=== PATIENT | female | born 2000 | race Caucasian/White ===

== ENCOUNTER 2020-01-30 23:25 | Inpatient (IN) | payer MEDICAID ==
[~2020-01-30] VITALS: Ht 162.6 cm; Wt 54.9 kg
[2020-01-30] MEDS ORDERED: ONDANSETRON HCL 4MG/2ML INJ IV ONE (23:45)
[2020-01-31 00:02] LABS: BASOPHILS % 0.4 % (0.0-2.0); EOSINOPHILS % 2.9 % (0.0-5.0); HEMATOCRIT. 31.6 % (36.0-48.0); HEMOGLOBIN. 11.1 g/dL (12.0-16.0); LYMPHOCYTES % 40.1 % (20.0-50.0); MEAN CORPUSCULAR HEMOGLOBIN 28.8 pg (28.0-32.0); MEAN PLATELET VOLUME 7.6 fl (7.4-10.4); MONOCYTES % 7.8 % (2.0-8.0); NEUTROPHILS % 48.8 % (40.0-76.0); PLATELET 268 x1000/uL (130-400); RED BLOOD CELL COUNT 3.86 mill/uL (4.2-5.4); RED CELL DISTRIBUTION WIDTH 13.4 % (11.6-14.6)
[2020-01-31 00:08] LABS: CHLORIDE 108 mEq/L (98-107)
[2020-01-31] MEDS ORDERED: SODIUM CHLORIDE 0.9% 500 ML IV ONE (00:30)
[2020-01-31 00:32] LABS: B-HCG QUANTITATIVE 2808 mIU/mL (<3)
[2020-01-31] MEDS ORDERED: MORPHINE SULFATE 4 MG/ML CPJ (NOT FOR IM USE) IV ONE (01:30)
[2020-01-31 07:30] VITALS: BP 93/50
[2020-01-31] MEDS ORDERED: LIDOCAINE HCL 1% 20ML VIAL (Pyxis) INJ ONE (08:19)
[2020-01-31] MEDS ORDERED: PROPOFOL 200MG/20ML VIAL IV ONE (08:19)
[2020-01-31] MEDS ORDERED: MIDAZOLAM HCL 2 MG/2 ML VIAL ONE (08:19)
[2020-01-31] MEDS ORDERED: KETOROLAC 30MG/ML VIAL ONE (08:50)
[2020-01-31] MEDS ORDERED: ONDANSETRON HCL 4MG/2ML INJ ONE (08:50)
[2020-01-31] MEDS ORDERED: METOCLOPRAMIDE HCL 10MG/2ML VIAL ONE (08:50)
[2020-01-31 09:37] VITALS: BP 93/50
[2020-01-31 12:00] VITALS: BP 102/68
[2020-01-31 14:00] VITALS: BP 99/68
[2020-01-31 14:45] VITALS: BP 99/68
== END 2020-01-31 18:14 | disposition home or self-care (01) | DRG 544 ==
LOC: ER 23:35 → 5EST 01-31 02:43 → ENRESERV 01-31 04:05
PROVIDERS: ADMIT Obstetrics & Gynecology; ATTEND Internal Medicine
PROC: 10D17Z9 Manual Extraction of Products of Conception, Retained, Via Natural or Artificial Opening (ICD-10-PCS; principal; 2020-01-31)
PROC: 30233N1 Transfusion of Nonautologous Red Blood Cells into Peripheral Vein, Percutaneous Approach (ICD-10-PCS; 2020-01-31)
PROC: 30233N1 Transfusion of Nonautologous Red Blood Cells into Peripheral Vein, Percutaneous Approach (ICD-10-PCS; 2020-01-31)
DX: O03.4 Incomplete spontaneous abortion without complication (principal); O03.31 Shock following incomplete spontaneous abortion
CPT/HCPCS: 36415; 76801; 80053; 84702; 85025; 86850; 86900; 86920; 88305; 99291; J1885; J2250; J2270; J2405; J2704; J2765; J3490; J7040; P9016